=== PATIENT | male | born 1955 | race Caucasian/White ===

== ENCOUNTER 2024-08-08 08:56 | Inpatient (IN) | payer OTHER ==
[~2024-08-08] VITALS: Ht 177.8 cm; Wt 90.7 kg
[2024-08-08 10:36] LABS: BASOPHILS % 0.5 % (0.0-2.0); EOSINOPHILS % 0.9 % (0.0-5.0); HEMOGLOBIN. 16.3 g/dL (14.0-18.0); LYMPHOCYTES % 11.5 % (20.0-50.0); MEAN CORPUSCULAR HEMOGLOBIN 33.4 pg (28.0-32.0); MEAN CORPUSCULAR HGB CONC 34.7 g/dL (31.0-37.0); MEAN CORPUSCULAR VOLUME 96.1 fL (80.0-94.0); MONOCYTES % 10.4 % (2.0-8.0); NEUTROPHILS % 76.7 % (40.0-76.0); PLATELET 246 x1000/uL (130-400); RED BLOOD CELL COUNT 4.89 mill/uL (4.7-6.1); RED CELL DISTRIBUTION WIDTH 13.9 % (11.6-14.6)
[2024-08-08 10:43] LABS: CHLORIDE 106 mEq/L (98-107); POTASSIUM 3.8 mEq/L (3.5-5.1); SODIUM 142 mEq/L (136-145)
[2024-08-08 10:44] LABS: CARBON DIOXIDE 27 mEq/L (21-32)
[2024-08-08 10:45] LABS: CALCIUM 9.3 mg/dL (8.7-10.4)
[2024-08-08 10:49] LABS: CREATININE 0.9 mg/dL (0.6-1.3); GLUCOSE 105 mg/dL (70-105)
[2024-08-08 10:50] LABS: UREA NITROGEN BLOOD 23 mg/dL (9-23)
[2024-08-08 10:50] LABS: CLARITY URINE CLEAR (CLEAR); COLOR URINE YELLOW (YELLOW); GLUCOSE URINE NEGATIVE (NEGATIVE); KETONES URINE NEGATIVE (NEGATIVE); LEUKOCYTE ESTERASE URINE NEGATIVE (NEGATIVE); NITRITE URINE NEGATIVE (NEGATIVE); OCCULT BLOOD URINE NEGATIVE (NEGATIVE); PROTEIN URINE TRACE (NEGATIVE); UROBILINOGEN URINE 0.2 E.U./dL (0.2-1.0)
[2024-08-08 10:52] LABS: TROPONIN I HIGH SENSITIVITY 6 ng/L (3.0-53)
[2024-08-08 11:02] LABS: *AMPHETAMINES SCREEN URINE NEGATIVE (NEGATIVE); *BARBITURATES SCREEN URINE NEGATIVE (NEGATIVE); *BENZODIAZEPINES SCREEN URINE NEGATIVE (NEGATIVE); *COCAINE SCREEN URINE NEGATIVE (NEGATIVE); METHADONE URINE SCREEN NEGATIVE (NEGATIVE); OPIATES URINE SCREEN NEGATIVE (NEGATIVE); PHENCYCLIDINE URINE SCREEN NEGATIVE (NEGATIVE)
[2024-08-08 11:03] LABS: CANNABINOID URINE SCREEN NEGATIVE (NEGATIVE); ECSTASY MDMA SCREEN URINE NEGATIVE (NEGATIVE)
[2024-08-08 11:11] LABS: SQUAMOUS EPITHELIAL CELL URINE RARE /lpf (RARE/1+)
[2024-08-08 11:12] LABS: BACTERIA URINE TRACE; MUCUS URINE TRACE /lpf (NONE/TRACE)
[2024-08-08 11:13] LABS: RBC URINE NONE SEEN /hpf (0-2); WBC URINE 0-2 /hpf (0-2)
[2024-08-08] MEDS: BACITRACIN ZINC OINT UDPKT TOP ONE (12:24)
[2024-08-08] MEDS: TETANUS, DIPHTHERIA, PERTUSSIS VAC/PF 0.5ML (>10YR OLD) IM ONE (12:24)
[2024-08-08] MEDS: LIDOCAINE HCL/EPINEPHRINE 1%-EPI 1:100,000 20ML VIAL INFIL ONE (12:24)
[2024-08-08] MEDS ORDERED: CLONIDINE 0.1MG TABLET PO PRN (13:00)
[2024-08-08] MEDS ORDERED: HYDROCODONE/ACETAMINOPHEN 5/325MG TABLET PO PRN (13:00)
[2024-08-08] MEDS ORDERED: MAGNESIUM/ALUMINUM HYDROXIDE/SIMETHICONE 30ML UDC PO PRN (13:00)
[2024-08-08] MEDS ORDERED: ACETAMINOPHEN 325MG TABLET PO PRN ×2 (13:00)
[2024-08-08] MEDS ORDERED: IPRATROPIUM/ALBUTEROL 0.5-3(2.5)MG/3ML NEB HHN PRN (13:00)
[2024-08-08] MEDS ORDERED: GUAIFENESIN 200MG/10ML SUGAR FREE UDC PO PRN (13:00)
[2024-08-08] MEDS ORDERED: DOCUSATE SODIUM 100MG CAPSULE PO PRN (13:00)
[2024-08-08] MEDS ORDERED: ONDANSETRON HCL 4MG/2ML INJ IV PRN (13:00)
[2024-08-08] MEDS ORDERED: MORPHINE SULFATE 2 MG/ML INJ (NOT FOR IM USE) IV PRN (13:00)
[2024-08-08 13:15] LABS: TROPONIN I HIGH SENSITIVITY 9 ng/L (3.0-53)
[2024-08-08] MEDS: ASPIRIN 325MG EC TABLET PO ONE (13:20)
[2024-08-08] MEDS: SODIUM CHLORIDE 0.9% 1,000 ML IV SCH (13:21)
[2024-08-08 14:38] LABS: HEMATOCRIT 44.4 % (42.0-52.0); HEMOGLOBIN 15.2 g/dL (14.0-18.0); MEAN CORPUSCULAR HEMOGLOBIN 32.5 pg (28.0-32.0); MEAN CORPUSCULAR HGB CONC 34.2 g/dL (31.0-37.0); MEAN CORPUSCULAR VOLUME 94.9 fL (80.0-94.0); PLATELET 217 x1000/uL (130-400); RED BLOOD CELL COUNT 4.68 mill/uL (4.7-6.1); WHITE BLOOD COUNT 7.6 x1000/uL (4.5-11.0)
[2024-08-08 14:57] LABS: CREATINE KINASE MB FRACTION 2.4 ng/mL (0.5-3.6)
[2024-08-08 15:00] VITALS: BP 161/88; PULSE 60; RESP 18; TEMP 36.5
[2024-08-08 15:02] VITALS: BP 161/88; PULSE 60; RESP 18; O2SAT 98
[2024-08-08 16:00] VITALS: BP 153/74; PULSE 62; RESP 18; TEMP 36.5; O2SAT 99
[2024-08-08 18:00] VITALS: BP 149/73; PULSE 62; RESP 18; O2SAT 97
[2024-08-08 18:12] LABS: TROPONIN I HIGH SENSITIVITY 13 ng/L (3.0-53)
[2024-08-08 20:00] VITALS: BP 137/78; PULSE 60; RESP 14; TEMP 36.4; O2SAT 97
[2024-08-08] MEDS: ATORVASTATIN CALCIUM 40MG TABLET PO SCH (20:30)
[2024-08-08 21:20] LABS: TROPONIN I HIGH SENSITIVITY 13 ng/L (3.0-53)
[2024-08-08 22:00] VITALS: BP 135/93; PULSE 56; RESP 14; O2SAT 97
[2024-08-09] VITALS (12 sets, daily range): BP systolic 123–172; BP diastolic 51–86; PULSE 52–66; RESP 14–17; TEMP 36.3–36.6; O2SAT 94–99
[2024-08-09 00:50] LABS: CREATINE KINASE MB FRACTION 2.5 ng/mL (0.5-3.6)
[2024-08-09 06:09] LABS: BASOPHILS % 0.4 % (0.0-2.0); DIFFERENTIAL COMMENT 0; EOSINOPHILS % 1.4 % (0.0-5.0); HEMATOCRIT. 45.8 % (42.0-52.0); HEMOGLOBIN. 15.6 g/dL (14.0-18.0); LYMPHOCYTES % 14.5 % (20.0-50.0); MEAN CORPUSCULAR HEMOGLOBIN 32.4 pg (28.0-32.0); MEAN CORPUSCULAR VOLUME 95.1 fL (80.0-94.0); MEAN PLATELET VOLUME 8.5 fl (7.4-10.4); NEUTROPHILS % 73.7 % (40.0-76.0); PLATELET 205 x1000/uL (130-400); RED BLOOD CELL COUNT 4.82 mill/uL (4.7-6.1); RED CELL DISTRIBUTION WIDTH 14.4 % (11.6-14.6); WHITE BLOOD COUNT 7.5 x1000/uL (4.5-11.0)
[2024-08-09 07:07] LABS: CALCIUM 8.6 mg/dL (8.7-10.4); CARBON DIOXIDE 25 mEq/L (21-32); CHLORIDE 106 mEq/L (98-107); POTASSIUM 3.7 mEq/L (3.5-5.1); SODIUM 141 mEq/L (136-145)
[2024-08-09 07:11] LABS: CREATININE 0.7 mg/dL (0.6-1.3); GLUCOSE 97 mg/dL (70-105); TRIGLYCERIDE 108 mg/dL (0-150)
[2024-08-09 07:12] LABS: LDL CHOLESTEROL 79 mg/dL (5-100); UREA NITROGEN BLOOD 15 mg/dL (9-23)
[2024-08-09 07:13] LABS: CHOLESTEROL 131 mg/dL (<200); HDL CHOLESTEROL 34 mg/dL (>55)
[2024-08-09 07:14] LABS: THYROID STIMULATING HORMONE 0.59 uIU/mL (0.55-4.78)
[2024-08-09 07:35] LABS: T4 FREE 1.05 ng/dL (0.89-1.76)
[2024-08-09] MEDS ORDERED: HYDRALAZINE 20MG/ML VIAL IV PRN (08:15)
[2024-08-09] MEDS: ASPIRIN 81MG EC TABLET PO SCH (10:58)
[2024-08-09] MEDS: AMLODIPINE 10MG TABLET PO SCH (10:59)
[2024-08-09] MEDS: LISINOPRIL 20MG TABLET PO SCH (10:59)
[2024-08-09 18:07] LABS: *AMPHETAMINES SCREEN URINE NEGATIVE (NEGATIVE); *BARBITURATES SCREEN URINE NEGATIVE (NEGATIVE); *BENZODIAZEPINES SCREEN URINE NEGATIVE (NEGATIVE); *COCAINE SCREEN URINE NEGATIVE (NEGATIVE); CANNABINOID URINE SCREEN NEGATIVE (NEGATIVE); ECSTASY MDMA SCREEN URINE NEGATIVE (NEGATIVE); METHADONE URINE SCREEN NEGATIVE (NEGATIVE); OPIATES URINE SCREEN NEGATIVE (NEGATIVE); PHENCYCLIDINE URINE SCREEN NEGATIVE (NEGATIVE)
[2024-08-09] MEDS: ENOXAPARIN 40MG/0.4ML SYR SUBCUT SCH (18:18)
[2024-08-10] VITALS (12 sets, daily range): BP systolic 105–143; BP diastolic 58–95; PULSE 58–70; RESP 14–20; TEMP 36.2–36.5; O2SAT 97–100
[2024-08-10 06:14] LABS: HEMATOCRIT 46.5 % (42.0-52.0); HEMOGLOBIN 16.1 g/dL (14.0-18.0); MEAN CORPUSCULAR HEMOGLOBIN 32.5 pg (28.0-32.0); MEAN CORPUSCULAR HGB CONC 34.5 g/dL (31.0-37.0); MEAN CORPUSCULAR VOLUME 94.3 fL (80.0-94.0); PLATELET 222 x1000/uL (130-400); RED BLOOD CELL COUNT 4.94 mill/uL (4.7-6.1); WHITE BLOOD COUNT 6.9 x1000/uL (4.5-11.0)
[2024-08-10 06:33] LABS: CHLORIDE 106 mEq/L (98-107); SODIUM 140 mEq/L (136-145)
[2024-08-10 06:34] LABS: CARBON DIOXIDE 26 mEq/L (21-32)
[2024-08-10 06:39] LABS: CREATININE 0.8 mg/dL (0.6-1.3); GLUCOSE 103 mg/dL (70-105)
[2024-08-10 06:40] LABS: UREA NITROGEN BLOOD 16 mg/dL (9-23)
[2024-08-10 06:41] LABS: CALCIUM 8.8 mg/dL (8.7-10.4)
[2024-08-10] MEDS: ENOXAPARIN 100MG/ML SYR SUBCUT NR (15:29)
[2024-08-11] VITALS (9 sets, daily range): BP systolic 97–145; BP diastolic 45–77; PULSE 54–69; RESP 10–19; TEMP 36.4–36.7; O2SAT 94–98
[2024-08-11 10:27] LABS: PROTHROMBIN TIME 10.8 sec (9.6-11.0)
[2024-08-11] MEDS ORDERED: IODIXANOL 320MG/ML 100 ML BOTTLE IV ONE (10:53)
[2024-08-11] MEDS ORDERED: LIDOCAINE HCL 1% 20ML VIAL ONE (10:54)
[2024-08-11] MEDS ORDERED: GENTAMICIN 80MG in SODIUM CHLORIDE IRRIG SOLN 500ML IR NR (11:00)
[2024-08-11] MEDS ORDERED: FENTANYL CITRATE/PF 50MCG/ML 2ML VIAL ONE (11:18)
[2024-08-11] MEDS ORDERED: GENTAMICIN SULF 40MG/ML 2ML VIAL ONE (11:18)
[2024-08-11] MEDS ORDERED: MIDAZOLAM HCL 2 MG/2 ML VIAL ONE ×2 (11:18→11:50)
[2024-08-11] MEDS ORDERED: DIPHENHYDRAMINE 50MG/ML VIAL ONE (11:43)
[2024-08-11] MEDS ORDERED: CEFAZOLIN SODIUM 1000MG/VIAL ONE (11:44)
[2024-08-11] MEDS ORDERED: LIP40 PO (13:08)
[2024-08-11] MEDS ORDERED: AMLO10TA80 PO (13:08)
[2024-08-11] MEDS ORDERED: APIX5TAB MT (13:08)
[2024-08-11] MEDS ORDERED: CEPH250C2 MT (13:08)
[2024-08-11] MEDS ORDERED: HYDROCODONE/ACETAMINOPHEN 5/325MG TABLET PO PRN (14:00)
[2024-08-11] MEDS ORDERED: NALOXONE HCL 0.4MG/ML VIAL IV PRN (14:00)
== END 2024-08-11 21:30 | disposition home or self-care (01) | DRG 244 ==
LOC: ER 08:56 → 5EST 13:15 → EDBEDREQSVC 13:22 → EDBEDREQTM 13:22 → EDBEDREQ 13:22 → ENRESERV 14:08
PROVIDERS: ADMIT Hospitalist; ATTEND Hospitalist
PROC: 0JH606Z Insertion of Pacemaker, Dual Chamber into Chest Subcutaneous Tissue and Fascia, Open Approach (ICD-10-PCS; principal; 2024-08-11)
PROC: 02H63JZ Insertion of Pacemaker Lead into Right Atrium, Percutaneous Approach (ICD-10-PCS; 2024-08-11)
PROC: 02HK3JZ Insertion of Pacemaker Lead into Right Ventricle, Percutaneous Approach (ICD-10-PCS; 2024-08-11)
PROC: 0HQ1XZZ Repair Face Skin, External Approach (ICD-10-PCS; 2024-08-11)
DX: I44.1 Atrioventricular block, second degree (principal); I10 Essential (primary) hypertension; R00.1 Bradycardia, unspecified; E78.00 Pure hypercholesterolemia, unspecified; I48.0 Paroxysmal atrial fibrillation; I48.92 Unspecified atrial flutter; X58.XXXA Exposure to other specified factors, initial encounter; S01.111A Laceration without foreign body of right eyelid and periocular area, initial encounter; I45.3 Trifascicular block; I73.9 Peripheral vascular disease, unspecified; K57.30 Diverticulosis of large intestine without perforation or abscess without bleeding; Z96.652 Presence of left artificial knee joint; Z90.79 Acquired absence of other genital organ(s); Z86.0100 Personal history of colon polyps, unspecified; Z85.46 Personal history of malignant neoplasm of prostate; Z82.49 Family history of ischemic heart disease and other diseases of the circulatory system; Z79.899 Other long term (current) drug therapy; Z79.82 Long term (current) use of aspirin; Y93.89 Activity, other specified; Y92.89 Other specified places as the place of occurrence of the external cause; Y99.8 Other external cause status; Z87.891 Personal history of nicotine dependence
CPT/HCPCS: 33208; 36415; 71045; 75820; 80048; 80061; 80305; 81003; 82550; 82553; 82962; 83735; 83880; 84439; 84443; 84484; 85025; 85027; 90715; 93005; 93306; 93880; 97161; 97165; 99291; A4565; A4606; C1893; C1898; J0690; J1200; J1580; J1650; J2250; J3010; J3490; Q9967; C1785